=== PATIENT | female | born 1965 | race Caucasian/White ===

== ENCOUNTER → 2017-12-23 | Outpatient (CLI) | payer BC, OTHER | LOC: M ADAMS 10:00 | DX: M25.571 Pain in right ankle and joints of right foot (principal) | CPT/HCPCS: 73630 ==

== ENCOUNTER 2023-01-07 16:08 | Inpatient (IN) | payer BC, OTHER ==
[~2023-01-07] VITALS: Ht 160 cm; Wt 85.0 kg
[~2023-01-07 16:08] MED LIST: AMIT10TA2 OR; CEFT2ADD IV; CIPR500T19 OR; COLA100C2 OR; FERR325T OR; MAGN500T2 OR; MILKSUS OR; MULTIVIT PO; No Historical Meds; ONDA-1 OR; PERC5TAB8 OR; PERC7.5T8 OR; SENN15TA2 OR
[2023-01-07 16:51] LABS: BASO # 0.1 10^3/uL (0.0-0.2); BASO % 0.8 % (0.0-1.0); EOS # 0.2 10^3/uL (0.0-0.5); EOS % 1.8 % (0.0-3.0); HEMATOCRIT 38.5 % (36.0-47.0); HEMOGLOBIN 10.9 g/dl (12.0-15.5); LYMPH # 3.1 10^3/uL (1.5-5.0); LYMPH % 29.3 % (24.0-44.0); MEAN CORPUSCULAR HEMOGLOBIN 20.5 pg (27.0-33.0); MEAN CORPUSCULAR HGB CONC 28.3 g/dl (32.0-36.5); MEAN CORPUSCULAR VOLUME 72.2 fl (80.0-96.0); MONO # 0.8 10^3/uL (0.0-0.8); MONO % 7.7 % (2.0-8.0); NEUTROPHILS # 6.3 10^3/uL (1.5-8.5); NEUTROPHILS % 60.1 % (36.0-66.0); PLATELET COUNT, AUTOMATED 452 10^3/uL (150-450); RED BLOOD COUNT 5.33 10^6/uL (4.00-5.40); WHITE BLOOD COUNT 10.5 10^3/uL (4.0-10.0)
[2023-01-07 16:58] LABS: ERYTHROCYTE SEDIMENTATION RATE 12 mm/hr (0-30)
[2023-01-07 17:16] LABS: LIPASE 42 U/L (12-53)
[2023-01-07 17:17] LABS: INR 1.29; PARTIAL THROMBOPLASTIN TIME 26.3 SECONDS (24.8-34.2); PROTHROMBIN TIME 15.8 SECONDS (12.5-14.5)
[2023-01-07 17:18] LABS: ALBUMIN 3.8 G/DL (3.2-5.2); ALKALINE PHOSPHATASE 88 U/L (46-116); ALT/SGPT 35 U/L (7.0-40); AST/SGOT 47 U/L (<34); BILIRUBIN,DIRECT 0.4 MG/DL (<0.4); BLOOD UREA NITROGEN 16 MG/DL (9-23); CALCIUM LEVEL 8.6 MG/DL (8.5-10.1); CARBON DIOXIDE LEVEL 24 MMOL/L (20-31); CHLORIDE LEVEL 104 MMOL/L (98-107); CK-MB VALUE MASS 1.5 NG/ML (<3.6); CREATININE FOR GFR 0.69 MG/DL (0.55-1.30); GLOMERULAR FILTRATION RATE > 60.0 (>51); GLUCOSE, FASTING 106 MG/DL (60-100); POTASSIUM SERUM 4.8 MMOL/L (3.5-5.1); SODIUM LEVEL 138 MMOL/L (136-145); TOTAL PROTEIN 6.7 G/DL (5.7-8.2)
[2023-01-07 17:20] LABS: FREE T4 1.16 NG/DL (0.89-1.76)
[2023-01-07 17:28] LABS: CPK CREATINE PHOSPHOKINASE 79 U/L (34-145); MB/CK RELATIVE INDEX 1.89 (< OR =4)
[2023-01-07] MEDS ORDERED: ISOVUE-370 76% 100ML VIAL As Ordered ONE (17:37)
[2023-01-07] MEDS: METOPROLOL 5 MG/5 ML VIAL IV SCH ×3 (17:37→18:40)
[2023-01-07 18:20] LABS: CK-MB VALUE MASS 1.3 NG/ML (<3.6); MB/CK RELATIVE INDEX 2.09 (< OR =4)
[2023-01-07 18:36] LABS: RSV AMPLIFICATION NEGATIVE (NEGATIVE)
[2023-01-07] MEDS ORDERED: MED REC IN PROGRESS XX SCH (18:40)
[2023-01-07] MEDS ORDERED: METOPROLOL 5 MG/5 ML VIAL IV STA (18:53)
[2023-01-07] MEDS ORDERED: DIGOXIN INJ 0.5 MG/2 ML AMP IV ONE (19:20)
[2023-01-07] MEDS ORDERED: MOM 30ML SUSPENSION UDC PO PRN (19:20)
[2023-01-07] MEDS ORDERED: DIGOXIN INJ 0.5 MG/2 ML AMP IV SCH (19:20)
[2023-01-07] MEDS ORDERED: FUROSEMIDE 40MG/4ML VIAL IV ONE (19:55)
[2023-01-07 20:39] VITALS: BP 142/94; TEMP 98; O2SAT 91
[2023-01-07] MEDS ORDERED: MED REC CURRENTLY UNOBTAINABLE XX SCH (20:40)
[2023-01-07 21:00] VITALS: BP 125/91; O2SAT 100
[2023-01-07] MEDS: DOCUSATE SODIUM 100MG CAPSULE PO SCH (21:00)
[2023-01-07] MEDS ORDERED: HOME MED LIST COMPLETE! XX SCH (21:00)
[2023-01-07 21:03] LABS: FERRITIN 5.1 NG/ML (7.3-270.7)
[2023-01-07 21:08] LABS: FOLATE 16.33 NG/ML (>5.4)
[2023-01-07 21:15] VITALS: BP 150/104; O2SAT 99
[2023-01-07] MEDS: METOPROLOL TART 25 MG TABLET PO SCH (21:20)
[2023-01-07] MEDS: COLCHICINE 0.6 MG TABLET PO SCH (22:19)
[2023-01-07 22:25] VITALS: BP 143/103; O2SAT 98
[2023-01-07] MEDS ORDERED: FERRIC CARBOXYMALTOSE INJ 750 MG, VIAL MATE ADAPTER 1 EACH in NS 250 ML IV ONE (23:00)
[2023-01-08] VITALS (11 sets, daily range): BP systolic 124–146; BP diastolic 66–94; TEMP 97.1–98.3; O2SAT 93–100
[2023-01-08] MEDS ORDERED: DIGOXIN INJ 0.5 MG/2 ML AMP IV SCH ×2 (02:00)
[2023-01-08 04:44] LABS: HEMATOCRIT 35.3 % (36.0-47.0); HEMOGLOBIN 10.1 g/dl (12.0-15.5); MEAN CORPUSCULAR HEMOGLOBIN 20.7 pg (27.0-33.0); MEAN CORPUSCULAR HGB CONC 28.6 g/dl (32.0-36.5); MEAN CORPUSCULAR VOLUME 72.5 fl (80.0-96.0); RED BLOOD COUNT 4.87 10^6/uL (4.00-5.40); WHITE BLOOD COUNT 8.6 10^3/uL (4.0-10.0)
[2023-01-08 04:45] LABS: PLATELET COUNT, AUTOMATED 334 10^3/uL (150-450)
[2023-01-08 04:48] LABS: BLOOD UREA NITROGEN 14 MG/DL (9-23); CALCIUM LEVEL 8.9 MG/DL (8.5-10.1); CARBON DIOXIDE LEVEL 31 MMOL/L (20-31); CHLORIDE LEVEL 105 MMOL/L (98-107); CREATININE FOR GFR 0.74 MG/DL (0.55-1.30); GLOMERULAR FILTRATION RATE > 60.0 (>51); GLUCOSE, FASTING 77 MG/DL (60-100); MAGNESIUM LEVEL 1.9 MG/DL (1.8-2.4); SODIUM LEVEL 143 MMOL/L (136-145)
[2023-01-08] MEDS: HEPARIN SOD (PORCINE) 5000UNITS/ML 1ML VIAL/SYRINGE SC SCH ×3 (05:27→21:10)
[2023-01-08 05:34] LABS: ABG BASE EXCESS 3.7 (-2.0-2.0); ABG HCO3 28.9 MMOL/L (22.0-26.0); ABG O2 SATURATION 94.6 % (95.0-99.0); ABG PARTIAL PRESSURE CO2 46.2 mmHg (35.0-45.0); ABG PARTIAL PRESSURE O2 74.3 mmHg (75.0-100.0); ABG STANDARD HCO3 27.8 MMOL/L. (22.0-26.0); ABG TOTAL CO2 30.3 MMOL/L (22.0-29.0); ABG pH (ARTERIAL) 7.414 UNITS (7.350-7.450)
[2023-01-08] MEDS ORDERED: DIGOXIN INJ 0.5 MG/2 ML AMP IV ONE (08:00)
[2023-01-08] MEDS ORDERED: FUROSEMIDE 40MG/4ML VIAL IV ONE (09:00)
[2023-01-08] MEDS: DOCUSATE SODIUM 100MG CAPSULE PO SCH ×2 (09:17→21:00)
[2023-01-08] MEDS: COLCHICINE 0.6 MG TABLET PO SCH (09:17)
[2023-01-08] MEDS: METOPROLOL TART 25 MG TABLET PO SCH ×2 (09:17→21:10)
[2023-01-08] MEDS: SPIRONOLACTONE 12.5MG PER 1/2 TABLET PO SCH (12:22)
[2023-01-08] MEDS: ENTRESTO 24-26MG TABLET (SACUBITRIL/VALSARTAN) PO SCH ×2 (12:22→21:10)
[2023-01-08] MEDS: ACETAMINOPHEN TAB 650MG DOSE (2X325MG) PO PRN ×2 (12:23→23:05)
[2023-01-08] MEDS ORDERED: CYCLOBENZAPRINE 10MG TABLET PO PRN (12:45)
[2023-01-08 12:58] LABS: LDH LACTATE DEHYDROGENASE 254 U/L (120-246)
[2023-01-08] MEDS: MAG SULF 1GM/100ML (MAG RUN) 1 GM in IV 1 EA IV SCH ×5 (13:34→22:35)
[2023-01-08 14:24] LABS: BLOOD UREA NITROGEN 14 MG/DL (9-23); CALCIUM LEVEL 9.9 MG/DL (8.5-10.1); CARBON DIOXIDE LEVEL 34 MMOL/L (20-31); CHLORIDE LEVEL 98 MMOL/L (98-107); CREATININE FOR GFR 0.76 MG/DL (0.55-1.30); GLOMERULAR FILTRATION RATE > 60.0 (>51); GLUCOSE, FASTING 96 MG/DL (60-100); POTASSIUM SERUM 3.9 MMOL/L (3.5-5.1); SODIUM LEVEL 140 MMOL/L (136-145)
[2023-01-08 16:40] LABS: MAGNESIUM LEVEL 1.7 MG/DL (1.8-2.4)
[2023-01-09] VITALS: BP 113/71; TEMP 98.2; O2SAT 96
[2023-01-09 04:15] VITALS: BP 107/67; TEMP 98.2; O2SAT 97
[2023-01-09 04:26] LABS: HEMATOCRIT 40.1 % (36.0-47.0); HEMOGLOBIN 11.3 g/dl (12.0-15.5); MEAN CORPUSCULAR HEMOGLOBIN 20.8 pg (27.0-33.0); MEAN CORPUSCULAR HGB CONC 28.2 g/dl (32.0-36.5); MEAN CORPUSCULAR VOLUME 73.7 fl (80.0-96.0); PLATELET COUNT, AUTOMATED 326 10^3/uL (150-450); RED BLOOD COUNT 5.44 10^6/uL (4.00-5.40); WHITE BLOOD COUNT 7.6 10^3/uL (4.0-10.0)
[2023-01-09 04:56] LABS: BLOOD UREA NITROGEN 11 MG/DL (9-23); CALCIUM LEVEL 8.6 MG/DL (8.5-10.1); CARBON DIOXIDE LEVEL 34 MMOL/L (20-31); CHLORIDE LEVEL 104 MMOL/L (98-107); CREATININE FOR GFR 0.71 MG/DL (0.55-1.30); GLOMERULAR FILTRATION RATE > 60.0 (>51); GLUCOSE, FASTING 95 MG/DL (60-100); MAGNESIUM LEVEL 2.3 MG/DL (1.8-2.4); POTASSIUM SERUM 3.9 MMOL/L (3.5-5.1); SODIUM LEVEL 143 MMOL/L (136-145)
[2023-01-09] MEDS: HEPARIN SOD (PORCINE) 5000UNITS/ML 1ML VIAL/SYRINGE SC SCH (06:00)
[2023-01-09] MEDS ORDERED: ENTR1TAB PO (07:15)
[2023-01-09] MEDS ORDERED: ALDA25TA2 PO (07:15)
[2023-01-09] MEDS ORDERED: METO1TAB7 PO (07:15)
[2023-01-09] MEDS ORDERED: ELIQ5TAB PO (07:15)
[2023-01-09 08:00] VITALS: BP 108/75; TEMP 98.2; O2SAT 98
[2023-01-09] MEDS: ENTRESTO 24-26MG TABLET (SACUBITRIL/VALSARTAN) PO SCH ×2 (08:28→21:04)
[2023-01-09] MEDS: SPIRONOLACTONE 12.5MG PER 1/2 TABLET PO SCH (08:28)
[2023-01-09] MEDS: DOCUSATE SODIUM 100MG CAPSULE PO SCH ×2 (08:54→21:00)
[2023-01-09] MEDS: APIXABAN 5 MG TAB (ELIQUIS) PO SCH ×2 (08:54→21:04)
[2023-01-09] MEDS: METOPROLOL TART 50 MG TAB PO SCH ×2 (08:54→21:04)
[2023-01-09] MEDS ORDERED: FUROSEMIDE 40 MG TAB PO SCH (09:00)
[2023-01-09] MEDS ORDERED: METOPROLOL SUCC (TopROL XL) 50MG **XL** TAB PO SCH (09:00)
[2023-01-09 11:47] VITALS: BP 105/70; TEMP 97.5; O2SAT 100
[2023-01-09 16:00] VITALS: BP 111/74; TEMP 97; O2SAT 98
[2023-01-09] MEDS ORDERED: METOPROLOL TART 50 MG TAB PO ONE (18:25)
[2023-01-09 20:00] VITALS: BP 118/77; TEMP 98.1; O2SAT 97
[2023-01-09] MEDS: COLCHICINE 0.6 MG TABLET PO SCH (21:04)
[2023-01-09] MEDS: ACETAMINOPHEN TAB 650MG DOSE (2X325MG) PO PRN (21:06)
[2023-01-10] VITALS: BP 124/79; TEMP 97.3; O2SAT 93
[2023-01-10 04:00] VITALS: BP 117/74; TEMP 96.9; O2SAT 98
[2023-01-10 05:12] LABS: HEMATOCRIT 42.6 % (36.0-47.0); HEMOGLOBIN 12.7 g/dl (12.0-15.5); MEAN CORPUSCULAR HEMOGLOBIN 22.1 pg (27.0-33.0); MEAN CORPUSCULAR HGB CONC 29.8 g/dl (32.0-36.5); MEAN CORPUSCULAR VOLUME 74.2 fl (80.0-96.0); PLATELET COUNT, AUTOMATED 373 10^3/uL (150-450); RED BLOOD COUNT 5.74 10^6/uL (4.00-5.40); WHITE BLOOD COUNT 7.5 10^3/uL (4.0-10.0)
[2023-01-10 05:34] LABS: BLOOD UREA NITROGEN 15 MG/DL (9-23); CALCIUM LEVEL 8.9 MG/DL (8.5-10.1); CARBON DIOXIDE LEVEL 35 MMOL/L (20-31); CHLORIDE LEVEL 103 MMOL/L (98-107); CREATININE FOR GFR 0.85 MG/DL (0.55-1.30); GLOMERULAR FILTRATION RATE > 60.0 (>51); GLUCOSE, FASTING 89 MG/DL (60-100); POTASSIUM SERUM 4.4 MMOL/L (3.5-5.1); SODIUM LEVEL 142 MMOL/L (136-145)
[2023-01-10 08:00] VITALS: BP 128/81; TEMP 97; O2SAT 96
[2023-01-10] MEDS ORDERED: FUROSEMIDE 20 MG TAB PO SCH (09:00)
[2023-01-10] MEDS: DOCUSATE SODIUM 100MG CAPSULE PO SCH (09:00)
[2023-01-10] MEDS ORDERED: DAPAGLIFLOZIN PROPANEDIOL 10MG TABLET (FARXIGA) PO SCH (09:00)
[2023-01-10] MEDS ORDERED: METOPROLOL TART 25 MG TABLET PO SCH (09:00)
[2023-01-10] MEDS ORDERED: METOPROLOL TARTRATE 100MG TAB PO SCH (09:00)
[2023-01-10] MEDS: COLCHICINE 0.6 MG TABLET PO SCH (09:18)
[2023-01-10] MEDS: APIXABAN 5 MG TAB (ELIQUIS) PO SCH (09:18)
[2023-01-10] MEDS: SPIRONOLACTONE 12.5MG PER 1/2 TABLET PO SCH (09:18)
[2023-01-10] MEDS: ENTRESTO 24-26MG TABLET (SACUBITRIL/VALSARTAN) PO SCH (09:18)
[2023-01-10 09:20] VITALS: BP 128/81
[2023-01-10] MEDS ORDERED: METO1TAB7 PO (10:29)
[2023-01-10] MEDS ORDERED: FARX1TAB3 PO (10:29)
[2023-01-10] MEDS ORDERED: COLC0.6T47 PO (10:29)
[2023-01-10] MEDS ORDERED: FURO20TA2 PO (10:29)
== END 2023-01-10 12:00 | disposition home or self-care (01) | DRG 201 ==
LOC: M ED 16:08 → M ED INP 18:57 → M ICU 20:27
PROVIDERS: ADMIT Internal Medicine; ATTEND Internal Medicine
DX: I48.91 Unspecified atrial fibrillation (principal); I50.21 Acute systolic (congestive) heart failure; I31.39 Other pericardial effusion (noninflammatory); I42.8 Other cardiomyopathies; C55 Malignant neoplasm of uterus, part unspecified; D50.9 Iron deficiency anemia, unspecified; E66.9 Obesity, unspecified; R00.0 Tachycardia, unspecified; Z68.33 Body mass index [BMI] 33.0-33.9, adult; Z92.21 Personal history of antineoplastic chemotherapy; Z92.3 Personal history of irradiation; Z79.899 Other long term (current) drug therapy; Z80.0 Family history of malignant neoplasm of digestive organs; Z80.2 Family history of malignant neoplasm of other respiratory and intrathoracic organs; K57.90 Diverticulosis of intestine, part unspecified, without perforation or abscess without bleeding

== ENCOUNTER → 2023-03-05 | Outpatient (CLI) | payer BC, OTHER ==
[~2023-03-05] MED LIST changes: +ALDA25TA2 PO; +COLC0.6T47 PO; +ELIQ5TAB PO; +ENTR1TAB PO; +FARX1TAB3 PO; +FURO20TA2 PO; +METO1TAB7 PO
== END ==
LOC: M WHC 07:45
PROVIDERS: ATTEND Nurse Practitioner Family
DX: Z12.31 Encounter for screening mammogram for malignant neoplasm of breast (principal)

== ENCOUNTER → 2023-04-23 | Outpatient (REF) | payer BC, OTHER ==
[~2023-04-23] MED LIST changes: +AMIO200T49 PO; +METO200T28 PO
[2023-04-23 13:48] LABS: BASO # 0.1 10^3/uL (0.0-0.2); BASO % 0.8 % (0.0-1.0); EOS # 0.2 10^3/uL (0.0-0.5); EOS % 2.8 % (0.0-3.0); HEMATOCRIT 50.2 % (36.0-47.0); HEMOGLOBIN 16.1 g/dl (12.0-15.5); LYMPH % 30.6 % (24.0-44.0); MEAN CORPUSCULAR HGB CONC 32.1 g/dl (32.0-36.5); MEAN CORPUSCULAR VOLUME 87.5 fl (80.0-96.0); MONO # 0.5 10^3/uL (0.0-0.8); MONO % 7.6 % (2.0-8.0); NEUTROPHILS # 3.7 10^3/uL (1.5-8.5); PLATELET COUNT, AUTOMATED 256 10^3/uL (150-450); RED BLOOD COUNT 5.74 10^6/uL (4.00-5.40); WHITE BLOOD COUNT 6.4 10^3/uL (4.0-10.0)
[2023-04-23 14:03] LABS: FERRITIN 41.9 NG/ML (7.3-270.7)
[2023-04-24 17:07] LABS: PERCENT SATURATION 31.9 % (13.2-45.0)
== END ==
LOC: M LAB REF 12:52
PROVIDERS: ATTEND Nurse Practitioner Family
DX: E61.1 Iron deficiency (principal)

== ENCOUNTER 2023-05-14 05:57 | Day surgery (SDC) | payer BC, OTHER ==
[~2023-05-14] VITALS: Ht 160 cm; Wt 85.6 kg
[2023-05-14] MEDS ORDERED: LIDOCAINE 1% SDV 5ML VIAL SC PRN (06:45)
[2023-05-14] MEDS ORDERED: LR 1,000 ML IV SCH (06:45)
[2023-05-14] MEDS ORDERED: propofoL 200 MG/20 ML VIAL As Ordered ONE (06:52)
[2023-05-14] MEDS ORDERED: LIDOCAINE 2% 100MG/5ML SDV (FOR ANES.) As Ordered ONE (06:52)
[2023-05-14] MEDS ORDERED: ONDANSETRON 4MG 2ML VIAL IV PRN (07:15)
[2023-05-14 08:35] VITALS: BP 132/63; TEMP 96.8; O2SAT 100
== END 2023-05-14 08:40 | disposition home or self-care (01) ==
LOC: M SDC 05:57
PROVIDERS: ATTEND Internal Medicine Cardiovascular Disease
DX: I48.91 Unspecified atrial fibrillation (principal); Z79.01 Long term (current) use of anticoagulants; Z92.21 Personal history of antineoplastic chemotherapy; Z85.42 Personal history of malignant neoplasm of other parts of uterus; Z79.899 Other long term (current) drug therapy

== ENCOUNTER → 2024-12-23 | Outpatient (CLI) | payer BC ==
[~2024-12-23] MED LIST changes: -AMIO200T49 PO; +AMIO200T54 PO; +METO200T15 PO; -METO200T28 PO
== END ==
LOC: M WHC 14:00
PROVIDERS: ATTEND Nurse Practitioner Family
DX: Z12.31 Encounter for screening mammogram for malignant neoplasm of breast (principal); R92.323 Mammographic fibroglandular density, bilateral breasts; Z13.820 Encounter for screening for osteoporosis; M85.89 Other specified disorders of bone density and structure, multiple sites